=== PATIENT | male | born 1960 | race Caucasian/White ===

== ENCOUNTER 2017-09-22 04:56 | Day surgery (SDC) | payer OTHER ==
[~2017-09-22] VITALS: Ht 185.4 cm; Wt 108.9 kg
--- NOTE | ~2017-09-22 | HP ---
PATIENT: BETTY MORAN MEDICAL RECORD: [id number] ACCOUNT: [id number] LOCATION:[facility] : 60 ADMISSION DATE: 09/22/17 HISTORY AND PHYSICAL EXAMINATION HISTORY OF PRESENT ILLNESS: The patient has a right-sided hydrocele, also right inguinal hernia. The right inguinal hernia is reducible. The patient is housed at the [facility]. The pathophysiology of hernias as well as hydrocele was discussed with the patient when I saw him out at the long-term in consultation. I am going to plan for percutaneous drainage of the hydrocele as well as open right inguinal hernia repair with mesh. The risks, possible complications and alternatives to procedure were explained to the patient. He elects to proceed. MEDICATIONS: At present include levothyroxine as well as lisinopril. ALLERGIES: No known drug allergies. SOCIAL HISTORY: Ex-smoker. He had a 76-akpf-vtre history. PAST MEDICAL AND SURGICAL HISTORY: Includes hypertension, hypothyroidism, right inguinal hernia, right-sided hydrocele. REVIEW OF SYSTEMS: Negative for CVA or seizures. Negative for renal disease or hepatitis. No heart disease. No fainting or seizure. No rheumatic fever. No diabetes. No lung disease. He is currently not short of breath. PHYSICAL EXAMINATION: GENERAL: The patient does not appear acutely ill. He does not appear chronically ill. VITAL SIGNS: Reviewed. EARS: External ears appear normal. EYES: Extraocular movements are intact. NECK: Trachea is midline. CHEST: No intercostal retractions. PULMONARY: Nonlabored, no stridor. ABDOMEN: Nontender. GENITOURINARY: Distended testicles, right inguinal hernia, right-sided hydrocele which is moderately sized. IMPRESSION: 1. Right-sided hydrocele, symptomatic. 2. Right inguinal hernia, symptomatic. PLAN: Open right inguinal hernia repair with mesh. Percutaneous drainage of a right-sided hydrocele. TRANSINT:[id number] Voice Confirmation ID: [id number] DOCUMENT ID: [id number] HISTORY AND PHYSICAL [id number] BETTY MORAN ROBERT MD at 0938 CC: [id number] DICTATION DATE: 09/22/17 1006 [employer]URING [employer] CONTROLLER: 09/22/17 1042 [facility] 09/22/17 [place] [id number]
--- NOTE | ~2017-09-22 | OP ---
PATIENT NAME: BETTY MORAN MEDICAL RECORD: [id number] :60 LOCATION:D[facility] ADMISSION DATE: SURGEON: ASHLEE LEUNG MD DATE OF OPERATION: 09/22/2017 PREOPERATIVE DIAGNOSES: 1. Symptomatic right inguinal hernia. 2. Enlarging right hydrocele, symptomatic. POSTOPERATIVE DIAGNOSES: 1. Right indirect inguinal hernia, symptomatic. 2. Right-sided enlarging hydrocele, symptomatic. PROCEDURES: 1. Open right inguinal hernia repair with mesh, bilayered polypropylene mesh. 2. Percutaneous drainage of the right hydrocele with the aspiration of 260 cc of clear fluid. SURGEON: Ashlee Leung MD ACTUARY CLERK: None. BLOOD LOSS: Minimal. ANESTHESIA: General. COMPLICATIONS: None. The risks, possible complications and alternatives to procedure were explained to the patient. He elects to proceed. I told the patient, there is a great likelihood that the right hydrocele will recur in the future as we are just performing a drainage right now. In order to prevent the hydrocele from recurring in its entirety, the patient would require a hydrocelectomy. OPERATIVE COURSE: The patient was conveyed to the operating room electively on 09/22/2017. General anesthesia was induced by the anesthesia staff. The abdomen and genitals were sterilely prepped and draped. The right hydrocele was identified. Utilizing an anterior approach, I percutaneously accessed the right hydrocele with an 18-gauge needle. I aspirated 260 cc of clear fluid. This was not sent for culture. I then removed the 18-gauge needle. I went about beginning the right inguinal hernia repair. A transverse incision was accomplished in the right pannicular crease. Sharp dissection was carried down through skin and subcutaneous tissue as well as Martin fascia. The external oblique aponeurosis was then cleaned of overlying connective tissue. I incised the external oblique aponeurosis along the direction of its fibers. I then bluntly dissected down through the internal oblique and transversus abdominis muscle layers. A preperitoneal pocket was fashioned bluntly. A small right inguinal hernia, which was an indirect hernia, was reduced in its entirety. There was no direct component. No femoral component. I then cut 2 ovals out of a polypropylene mesh. The 2 ovals were sutured together one on top of the other with a running #1 Surgidac. The mesh was placed in the preperitoneal space. Once I was satisfied with placement of the OPERATIVE REPORT [id number] BETTY MORAN mesh, I sutured the internal oblique and transversus abdominis muscle layers together with multiple interrupted horizontal mattress of 0 Surgidac incorporating a portion of the mesh with these sutures. I then closed the external oblique aponeurosis with running #1 Vicryls. At no time during this operation was there any apparent nervous injury. Martin fascia was approximated with interrupted 3-0 Vicryls. The subdermis was approximated with interrupted 3-0 Vicryls. The skin was approximated with a running intracuticular 4-0 Vicryl. Benzoin and Steri-Strips were applied. The patient was then extubated and conveyed to post-anesthesia care unit where he was in stable condition. There is no need for the patient to follow up with me in the office unless he develops a complication related to his operative procedure. He will be dismissed back to the alf on [place] for pain. TRANSINT:[id number] Voice Confirmation ID: [id number] DOCUMENT ID: [id number] ASHLEE LEUNG MD at 0938 CC: ASHLEE ANDERSON MD, BJORN BAIRES MD and JOSUE SORTO [id number] DICTATION DATE: 09/22/17 1019 MEDICAL PLANNER: 09/22/17 1051 [facility] 09/22/[address] [address]
[2017-09-22] MEDS ORDERED: PRINIVIL20 MG PO (06:42)
[2017-09-22] MEDS ORDERED: TIROSINT13 MCG PO (06:43)
[2017-09-22 06:51] VITALS: BP 124/88; Ht 185.4 cm; Wt 108.9 kg
[2017-09-22 07:15] LABS: HEMATOCRIT 45.8 % (42.0-54.0); MCH 31.4 pg (26.0-34.0); MCHC 34.9 g/dL (31.0-37.0); MEAN PLATELET VOLUME 12.1 fL (7.4-10.4); RBC 5.09 10x6/uL (4.20-6.10); RDW 12.5 % (11.5-14.5); WBC 5.9 10x3/uL (4.8-10.8)
== END 2017-09-22 12:00 | disposition home or self-care (01) ==
LOC: D.OPS 04:56
PROVIDERS: Anesthesiology
DX: K40.90 Unilateral inguinal hernia, without obstruction or gangrene, not specified as recurrent (principal); N43.3 Hydrocele, unspecified; I10 Essential (primary) hypertension; E03.9 Hypothyroidism, unspecified; Z01.812 Encounter for preprocedural laboratory examination